=== PATIENT | male | born 1960 | race Caucasian/White ===

== ENCOUNTER 2018-06-06 14:08 | Emergency (ER) | payer MEDICAID ==
[~2018-06-06] VITALS: Ht 177.8 cm; Wt 85.0 kg
[~2018-06-06 14:08] MED LIST: FLUT16SP2 BOTHNARES
[2018-06-06 14:31] VITALS: BP 118/68
[2018-06-06] MEDS ORDERED: ONDA4TAB6 PO (15:19)
[2018-06-06] MEDS ORDERED: DOXY100C43 PO (15:19)
--- NOTE | 2018-06-06 16:40 | NUR ---
Patient seen and assessed by provider.
== END 2018-06-06 16:46 | disposition home or self-care (01) ==
LOC: ER 14:09
DX: H72.91 Unspecified perforation of tympanic membrane, right ear (principal); H92.03 Otalgia, bilateral; Z98.890 Other specified postprocedural states; Z79.899 Other long term (current) drug therapy
CPT/HCPCS: 99283

== ENCOUNTER 2019-04-15 07:08 | Inpatient (IN) | payer MEDICAID ==
[~2019-04-15] VITALS: Ht 177.8 cm; Wt 93.2 kg
[~2019-04-15 07:08] MED LIST changes: +ONDA4TAB6 PO
[2019-04-15] MEDS ORDERED: normal saline 1000ML IV soln IVB ONE (08:05)
[2019-04-15] MEDS ORDERED: piperacillin/tazo 3.375gm/50ml 50 ML IV ONE (08:25)
[2019-04-15 08:35] LABS: BASOPHILS # (AUTO) 0.1 X10'3 (0-0.2); BASOPHILS % (AUTO) 0.5 % (0-1); EOSINOPHILS # (AUTO) 0.1 X10'3 (0-0.9); EOSINOPHILS % (AUTO) 1.3 % (0-6); HEMATOCRIT 38.9 % (42.0-52.0); HEMOGLOBIN 13.6 g/dl (14.0-17.9); LYMPHOCYTES # (AUTO) 0.6 X10'3 (1.1-4.8); LYMPHOCYTES % (AUTO) 5.5 % (21-51); MEAN CORPUSCULAR HGB CONC 34.9 g/dL (33.0-36.5); MEAN CORPUSCULAR VOLUME 88.8 FL (78-98); MEAN PLATELET VOLUME 7.4 FL (7.4-10.4); MONOCYTES # (AUTO) 1.2 X10'3 (0-0.9); MONOCYTES % (AUTO) 11.4 % (2-12); NEUTROPHILS # (AUTO) 8.6 X10'3 (1.8-7.7); NEUTROPHILS % (AUTO) 81.3 % (42-75); PLATELET COUNT 230 X10'3 (140-440); RED BLOOD COUNT 4.38 X10'6 (4.70-6.10); RED CELL DISTRIBUTION WIDTH 13.2 % (11.5-14.5); WHITE BLOOD COUNT 10.6 X10'3 (4.5-11.0)
[2019-04-15 08:47] LABS: ALANINE AMINOTRANSFERASE 18 U/L (12-78); ALBUMIN 3.2 G/DL (3.4-5.0); ALBUMIN/GLOBULIN RATIO 0.7 (1.1-1.5); ALKALINE PHOSPHATASE 89 IU/L (46-116); ANION GAP 10 (8-16); ASPARTATE AMINO TRANSFERASE 9 U/L (10-37); BILIRUBIN,TOTAL 0.3 MG/DL (0.1-1.0); BLOOD UREA NITROGEN 17 MG/DL (7-18); BUN/CREATININE RATIO 20.5 (5.4-32.0); CALCIUM 9.3 MG/DL (8.5-10.1); CHLORIDE 99 MMOL/L (99-107); CREATININE 0.83 MG/DL (0.60-1.10); GLUCOSE 224 MG/DL (70-104); POTASSIUM 3.9 MMOL/L (3.5-5.1); SODIUM 134 MMOL/L (135-145); TOTAL PROTEIN 7.6 G/DL (6.4-8.2); eGFR > 90 ML/MIN
[2019-04-15 08:49] LABS: HEMOGLOBIN A1C 6.9 % (4.5-6.2)
[2019-04-15] MEDS ORDERED: magnesium hydroxide 30ml (MOM) UD suspension PO PRN (09:30)
[2019-04-15] MEDS ORDERED: potassium CL 10mEq/100ml bag 100 ML IV PRN ×2 (09:30)
[2019-04-15] MEDS ORDERED: mag hydrox/Alum hydrox/simeth 30ml oral suspension PO PRN (09:30)
[2019-04-15] MEDS ORDERED: magnesium 2GM in 50ml NS 50 ML IV PRN (09:30)
[2019-04-15] MEDS ORDERED: HYDROcodone/acetaminophen 5mg/325mg tablet PO PRN (09:30)
[2019-04-15] MEDS ORDERED: acetaminophen 325mg tablet PO PRN ×2 (09:30)
[2019-04-15] MEDS ORDERED: potassium Cl 20 mEq SR tablet PO PRN ×2 (09:30)
[2019-04-15] MEDS ORDERED: ondansetron/PF 4mg/2ml inj IV PRN (09:30)
[2019-04-15] MEDS ORDERED: morphine 2 MG/ML inj. syringe IV PRN (09:30)
[2019-04-15] MEDS ORDERED: magnesium 4gm in 100ml NS 100 ML IV PRN (09:30)
[2019-04-15] MEDS ORDERED: magnesium Cl slow-release 64mg tablet PO PRN (09:30)
[2019-04-15] MEDS ORDERED: METF500T PO (09:39)
[2019-04-15] MEDS ORDERED: AMIT25TA10 PO (12:36)
[2019-04-15] MEDS ORDERED: BUDE180A INH (12:36)
--- NOTE | 2019-04-15 12:40 | NUR ---
ATTEMPTED TO CALL REPORT TO ORTHO-NEURO UNIT, BUT NURSE IS UNAVAILABLE TO TAKE REPORT AT THIS TIME.
--- NOTE | 2019-04-15 13:20 | NUR ---
RECEIVED REPORT FROM SCARLETT WEINBERG. CALLED ER WHEN I GOT BACK FROM LUNCH TO GET REPORT.
[2019-04-15] MEDS: morphine 2 MG/ML inj. syringe IV PRN (13:23)
[2019-04-15 13:50] VITALS: BP 137/80
[2019-04-15] MEDS: HYDROcodone/acetaminophen 10/325mg tab PO PRN ×2 (16:37→20:36)
--- NOTE | 2019-04-15 17:47 | NUR ---
paged regarding antibiotics and diet.
--- NOTE | 2019-04-15 17:56 | NUR ---
into see patient
[2019-04-15 18:00] VITALS: BP 109/62
[2019-04-15] MEDS ORDERED: dextrose 50%-water 50ml dispensing syringe IV PRN ×2 (18:20)
[2019-04-15] MEDS ORDERED: glucagon, human recombinant 1mg kit SUBCUT PRN (18:20)
[2019-04-15] MEDS ORDERED: MESSAGE TO PHARMACY PO ONE (18:20)
[2019-04-15] MEDS ORDERED: insulin Lispro (HumaLOG) vial - multi-dose SQ SCH (18:20)
[2019-04-15] MEDS ORDERED: dextrose ORAL solution 15 GM/59 ML bottle PO PRN ×2 (18:20)
[2019-04-15] MEDS ORDERED: ipratropium/albuterol 3ml nebule NEB PRN (18:20)
--- NOTE | 2019-04-15 18:25 | NUR ---
Received report from LENARD Lorenzo. Assumed patient care.
--- NOTE | 2019-04-15 18:25 | NUR ---
Problems reprioritized. Patient report given, questions answered & plan of care reviewed with Socorro WEINBERG.
[2019-04-15] MEDS: VANCOmycin 1250MG/NS 250ml Bag 250 ML IV SCH (19:17)
[2019-04-15] MEDS: amitriptyline 50mg tablet PO SCH (20:36)
[2019-04-15] MEDS: lactobacillus rhamnosus 10,000 MMU CELLS/CAPSULE PO SCH (20:36)
[2019-04-15] MEDS: piperacillin/tazo 3.375gm/50ml 50 ML IV SCH (20:49)
[2019-04-15 22:00] VITALS: BP 95/62
[2019-04-15] MEDS: ipratropium/albuterol 3ml nebule NEB SCH (22:33)
[2019-04-16] VITALS (8 sets, daily range): BP systolic 98–125; BP diastolic 56–62
[2019-04-16] MEDS: VANCOmycin 1250MG/NS 250ml Bag 250 ML IV SCH ×4 (00:09→22:49)
[2019-04-16] MEDS: piperacillin/tazo 3.375gm/50ml 50 ML IV SCH ×3 (01:55→16:00)
[2019-04-16 05:48] LABS: BASOPHILS % (AUTO) 0.2 % (0-1); EOSINOPHILS # (AUTO) 0.2 X10'3 (0-0.9); EOSINOPHILS % (AUTO) 2.5 % (0-6); HEMATOCRIT 34.1 % (42.0-52.0); LYMPHOCYTES # (AUTO) 0.8 X10'3 (1.1-4.8); LYMPHOCYTES % (AUTO) 8.2 % (21-51); MEAN CORPUSCULAR HEMOGLOBIN 31.2 PG (27.0-31.0); MEAN CORPUSCULAR HGB CONC 35.2 g/dL (33.0-36.5); MEAN CORPUSCULAR VOLUME 88.5 FL (78-98); MEAN PLATELET VOLUME 7.4 FL (7.4-10.4); MONOCYTES # (AUTO) 1.7 X10'3 (0-0.9); MONOCYTES % (AUTO) 17.5 % (2-12); NEUTROPHILS # (AUTO) 6.9 X10'3 (1.8-7.7); NEUTROPHILS % (AUTO) 71.6 % (42-75); PLATELET COUNT 226 X10'3 (140-440); RED BLOOD COUNT 3.86 X10'6 (4.70-6.10); RED CELL DISTRIBUTION WIDTH 13.2 % (11.5-14.5); WHITE BLOOD COUNT 9.6 X10'3 (4.5-11.0)
[2019-04-16 05:56] LABS: ALBUMIN 2.5 G/DL (3.4-5.0); ANION GAP 6 (8-16); BLOOD UREA NITROGEN 9 MG/DL (7-18); CALCIUM 8.5 MG/DL (8.5-10.1); CHLORIDE 102 MMOL/L (99-107); GLUCOSE 152 MG/DL (70-104); MAGNESIUM 1.7 MG/DL (1.5-2.4); POTASSIUM 4.4 MMOL/L (3.5-5.1); SODIUM 137 MMOL/L (135-145); TOTAL CARBON DIOXIDE 29.1 MMOL/L (24-32); eGFR 87 ML/MIN
--- NOTE | 2019-04-16 06:31 | NUR ---
Report given, questions answered and plan of care reviewed to LENARD Lorenzo.
[2019-04-16] MEDS: insulin glargine (Lantus) pen - multi-dose SQ SCH ×2 (06:58→20:42)
[2019-04-16 07:04] LABS: PLATELET ESTIMATE NORMAL; TOTAL CELLS COUNTED 100
[2019-04-16] MEDS: lactobacillus rhamnosus 10,000 MMU CELLS/CAPSULE PO SCH ×3 (07:22→19:22)
[2019-04-16] MEDS: nicotine 21mg patch - 24 hr TD SCH (07:22)
[2019-04-16] MEDS: enoxaparin 40mg/0.4ml syringe SQ SCH (07:23)
[2019-04-16] MEDS: K and/or MAG REPLACEMENT MC SCH (07:23)
[2019-04-16] MEDS: budesonide 0.5mg/2ml UD nebule IH SCH ×2 (08:13→20:49)
[2019-04-16] MEDS: ipratropium/albuterol 3ml nebule NEB SCH ×3 (08:13→20:49)
--- NOTE | 2019-04-16 11:43 | NUR ---
Student documentation:I have reviewed and agree with all interventions, assessments performed and documented by Ronal Rodriguez.
[2019-04-16] MEDS ORDERED: fentaNYL/PF 50MCG/1 ML 2ML syringe ONE (15:07)
[2019-04-16] MEDS ORDERED: midazolam 2 mg/2 ml injection ONE (15:07)
[2019-04-16] MEDS ORDERED: morphine 4 MG/ML inj SYRINge IV PRN ×2 (15:25)
[2019-04-16] MEDS: ringers solution, lacted 1,000 ML IV SCH (15:25)
[2019-04-16] MEDS ORDERED: ondansetron/PF 4mg/2ml inj IV PRN (15:25)
[2019-04-16] MEDS ORDERED: meperidine/PF 25mg/ml syringe IV PRN ×3 (15:25)
[2019-04-16] MEDS ORDERED: proCHLORperazine 10 MG/2 ml inj IV PRN (15:25)
[2019-04-16] MEDS ORDERED: propofol inj 20 ML IV ONE (15:26)
--- NOTE | 2019-04-16 15:35 | NUR ---
ADMITTED TO PACU FROM OR ACCOMPANIED BY ANESTHESIA. INTIAL PHYSICAL ASSESSMENT DONE AND RECORDED. REPORT RECEIVED FROM ANESTHESIA.
--- NOTE | 2019-04-16 16:05 | NUR ---
PACU DISCHARGE CRITERIA MET, REPORT GIVEN TO FLOOR. DENIES PAIN OR DISCOMFORT, TRANSFERRED TO ROOM IN STABLE GOOD CONDITION.
[2019-04-16] MEDS: morphine 2 MG/ML inj. syringe IV PRN (19:23)
[2019-04-16] MEDS: amitriptyline 50mg tablet PO SCH (20:38)
[2019-04-17] MEDS: piperacillin/tazo 3.375gm/50ml 50 ML IV SCH ×2 (00:39→10:08)
[2019-04-17] MEDS: ringers solution, lacted 1,000 ML IV SCH (00:45)
[2019-04-17 02:00] VITALS: BP 117/60
[2019-04-17 06:00] VITALS: BP 101/48
--- NOTE | 2019-04-17 06:20 | NUR ---
Patient in room ORTHO 4013. I have received report from KYLEE WEINBERG and had the opportunity to ask questions and assume patient care.
--- NOTE | 2019-04-17 06:33 | NUR ---
Problems reprioritized. Patient report given, questions answered & plan of care reviewed with ANIA. Addendum: 04/17/19 at 0633 by Erick Allison RN Amended: Links added.
[2019-04-17] MEDS ORDERED: VANCOMYCIN LEVEL IV ONE ×3 (07:30→23:30)
[2019-04-17] MEDS: nicotine 21mg patch - 24 hr TD SCH (07:59)
[2019-04-17] MEDS: K and/or MAG REPLACEMENT MC SCH (08:00)
[2019-04-17] MEDS: lactobacillus rhamnosus 10,000 MMU CELLS/CAPSULE PO SCH ×2 (08:02→20:30)
[2019-04-17] MEDS: enoxaparin 40mg/0.4ml syringe SQ SCH (08:04)
[2019-04-17] MEDS: HYDROcodone/acetaminophen 10/325mg tab PO PRN ×4 (08:05→20:31)
[2019-04-17] MEDS: VANCOmycin 1250MG/NS 250ml Bag 250 ML IV SCH ×3 (08:13→23:57)
[2019-04-17 08:31] LABS: BASOPHILS % (AUTO) 0.5 % (0-1); EOSINOPHILS # (AUTO) 0.1 X10'3 (0-0.9); EOSINOPHILS % (AUTO) 1.4 % (0-6); HEMATOCRIT 36.3 % (42.0-52.0); HEMOGLOBIN 12.6 g/dl (14.0-17.9); LYMPHOCYTES # (AUTO) 0.7 X10'3 (1.1-4.8); LYMPHOCYTES % (AUTO) 7.8 % (21-51); MEAN CORPUSCULAR HEMOGLOBIN 30.6 PG (27.0-31.0); MEAN CORPUSCULAR HGB CONC 34.6 g/dL (33.0-36.5); MEAN CORPUSCULAR VOLUME 88.5 FL (78-98); MEAN PLATELET VOLUME 7.7 FL (7.4-10.4); MONOCYTES # (AUTO) 1.1 X10'3 (0-0.9); NEUTROPHILS % (AUTO) 78.3 % (42-75); PLATELET COUNT 251 X10'3 (140-440); RED CELL DISTRIBUTION WIDTH 13.2 % (11.5-14.5); WHITE BLOOD COUNT 8.9 X10'3 (4.5-11.0)
[2019-04-17 08:47] LABS: ALBUMIN 2.5 G/DL (3.4-5.0); ANION GAP 7 (8-16); BLOOD UREA NITROGEN 8 MG/DL (7-18); BUN/CREATININE RATIO 12.3 (5.4-32.0); CALCIUM 8.8 MG/DL (8.5-10.1); CHLORIDE 101 MMOL/L (99-107); CREATININE 0.65 MG/DL (0.60-1.10); GLUCOSE 140 MG/DL (70-104); MAGNESIUM 1.6 MG/DL (1.5-2.4); POTASSIUM 3.7 MMOL/L (3.5-5.1); SODIUM 134 MMOL/L (135-145); TOTAL CARBON DIOXIDE 26.2 MMOL/L (24-32); VANCOMYCIN,TROUGH 11.9 UG/ML (6.0-14.0); eGFR > 90 ML/MIN
[2019-04-17] MEDS: budesonide 0.5mg/2ml UD nebule IH SCH ×2 (09:00→19:43)
[2019-04-17] MEDS: ipratropium/albuterol 3ml nebule NEB SCH ×3 (09:00→19:42)
[2019-04-17 10:00] VITALS: BP 131/61
[2019-04-17] MEDS ORDERED: gadobutrol 10mmol/10ml inj. IV ONE (10:15)
[2019-04-17] MEDS: metroNIDAZOLE 500mg tablet PO SCH ×2 (11:29→20:30)
[2019-04-17] MEDS: CefTRIAXone 2gm/D5W 50ml 50 ML IV SCH (11:29)
--- NOTE | 2019-04-17 11:44 | NUR ---
Student documentation: I have reviewed all interventions, assessments performed and documented by Sarahi Guajardo. Student Medication Administration: For this medication-pass time frame, all medication were reviewed, dispensed, administered and documented per hospital policy by Sarahi Guajardo.
--- NOTE | 2019-04-17 14:46 | NUR ---
patient dicharged Addendum: 04/17/19 at 1449 by Billie Castillo RT Amended: Links added.
[2019-04-17 18:00] VITALS: BP 120/60
--- NOTE | 2019-04-17 18:05 | NUR ---
Problems reprioritized. Patient report given, questions answered & plan of care reviewed with ABDOUL WEINBERG.
[2019-04-17] MEDS: amitriptyline 50mg tablet PO SCH (20:30)
[2019-04-17] MEDS: insulin glargine (Lantus) pen - multi-dose SQ SCH (21:00)
[2019-04-17 22:00] VITALS: BP 118/63
[2019-04-18] MEDS: HYDROcodone/acetaminophen 10/325mg tab PO PRN (04:55)
[2019-04-18 06:00] VITALS: BP 114/86
[2019-04-18 06:43] LABS: BASOPHILS % (AUTO) 0.5 % (0-1); EOSINOPHILS # (AUTO) 0.3 X10'3 (0-0.9); EOSINOPHILS % (AUTO) 3.2 % (0-6); HEMATOCRIT 32.8 % (42.0-52.0); HEMOGLOBIN 11.5 g/dl (14.0-17.9); LYMPHOCYTES # (AUTO) 0.9 X10'3 (1.1-4.8); LYMPHOCYTES % (AUTO) 11.2 % (21-51); MEAN CORPUSCULAR HEMOGLOBIN 31.1 PG (27.0-31.0); MEAN CORPUSCULAR HGB CONC 34.9 g/dL (33.0-36.5); MEAN CORPUSCULAR VOLUME 89.2 FL (78-98); MEAN PLATELET VOLUME 7.7 FL (7.4-10.4); MONOCYTES % (AUTO) 12.2 % (2-12); NEUTROPHILS # (AUTO) 5.8 X10'3 (1.8-7.7); NEUTROPHILS % (AUTO) 72.9 % (42-75); PLATELET COUNT 261 X10'3 (140-440); RED BLOOD COUNT 3.68 X10'6 (4.70-6.10); RED CELL DISTRIBUTION WIDTH 13.4 % (11.5-14.5); WHITE BLOOD COUNT 7.9 X10'3 (4.5-11.0)
--- NOTE | 2019-04-18 06:48 | NUR ---
Patient in room ORTHO 4013. I have received report from Diane WEINBERG and had the opportunity to ask questions and assume patient care. All patient needs met at this time.
[2019-04-18 07:04] LABS: ALBUMIN 2.2 G/DL (3.4-5.0); ANION GAP 7 (8-16); BLOOD UREA NITROGEN 11 MG/DL (7-18); BUN/CREATININE RATIO 15.9 (5.4-32.0); CALCIUM 8.2 MG/DL (8.5-10.1); CHLORIDE 102 MMOL/L (99-107); CREATININE 0.69 MG/DL (0.60-1.10); GLUCOSE 117 MG/DL (70-104); MAGNESIUM 1.7 MG/DL (1.5-2.4); POTASSIUM 3.7 MMOL/L (3.5-5.1); SODIUM 137 MMOL/L (135-145); TOTAL CARBON DIOXIDE 27.8 MMOL/L (24-32); eGFR > 90 ML/MIN
[2019-04-18] MEDS: lactobacillus rhamnosus 10,000 MMU CELLS/CAPSULE PO SCH (07:24)
[2019-04-18] MEDS: metroNIDAZOLE 500mg tablet PO SCH (07:24)
[2019-04-18] MEDS: nicotine 21mg patch - 24 hr TD SCH (07:25)
[2019-04-18] MEDS: CefTRIAXone 2gm/D5W 50ml 50 ML IV SCH (07:26)
[2019-04-18] MEDS: enoxaparin 40mg/0.4ml syringe SQ SCH (08:00)
[2019-04-18] MEDS: K and/or MAG REPLACEMENT MC SCH (08:00)
[2019-04-18] MEDS: budesonide 0.5mg/2ml UD nebule IH SCH (09:49)
[2019-04-18] MEDS: ipratropium/albuterol 3ml nebule NEB SCH (09:49)
[2019-04-18 10:00] VITALS: BP 107/49
[2019-04-18] MEDS ORDERED: METF500T PO (11:45)
[2019-04-19] MEDS ORDERED: VANCOMYCIN LEVEL IV ONE (08:30)
== END 2019-04-18 13:15 | disposition home or self-care (01) | DRG 317 ==
LOC: ER 07:08 → ED HOLD 09:39 → ORTHO 4S 13:37
PROVIDERS: ADMIT Hospitalist; ATTEND Hospitalist
PROC: 0L9W0ZZ Drainage of Left Foot Tendon, Open Approach (ICD-10-PCS; 2019-04-16)
PROC: 0JBR0ZZ Excision of Left Foot Subcutaneous Tissue and Fascia, Open Approach (ICD-10-PCS; 2019-04-16)
PROC: 02HV33Z Insertion of Infusion Device into Superior Vena Cava, Percutaneous Approach (ICD-10-PCS; principal; 2019-04-17)
PROC: B548ZZA Ultrasonography of Superior Vena Cava, Guidance (ICD-10-PCS; 2019-04-17)
DX: E11.69 Type 2 diabetes mellitus with other specified complication (principal); M86.8X7 Other osteomyelitis, ankle and foot; E11.42 Type 2 diabetes mellitus with diabetic polyneuropathy; E11.621 Type 2 diabetes mellitus with foot ulcer; L03.115 Cellulitis of right lower limb; L97.529 Non-pressure chronic ulcer of other part of left foot with unspecified severity; J44.9 Chronic obstructive pulmonary disease, unspecified; L02.611 Cutaneous abscess of right foot; F17.200 Nicotine dependence, unspecified, uncomplicated; B95.7 Other staphylococcus as the cause of diseases classified elsewhere; F12.90 Cannabis use, unspecified, uncomplicated; L97.519 Non-pressure chronic ulcer of other part of right foot with unspecified severity; Z79.82 Long term (current) use of aspirin; Z85.819 Personal history of malignant neoplasm of unspecified site of lip, oral cavity, and pharynx; Z79.899 Other long term (current) drug therapy; Z71.6 Tobacco abuse counseling; Z59.0 Homelessness
CPT/HCPCS: 36415; 36569; 71045; 73630; 73723; 76937; 80048; 80053; 80202; 82948; 83036; 83605; 83735; 85025; 85610; 87040; 87070; 87077; 87081; 87186; 94640; 94760; 96361; 96365; 97110; 97116; 97161; 97535; 97760; 99285; A6446; A6449; A7000; A9585; G0378; J0696; J1650; J1815; J2250; J2270; J2543; J2704; J3010; J3370; J3490; J7120; J7626

== ENCOUNTER 2019-05-09 10:20 | Day surgery (SDC) | payer MEDICAID ==
[~2019-05-09 10:20] MED LIST changes: +AMIT25TA10 PO; +BUDE180A INH; -FLUT16SP2 BOTHNARES; +METF500T PO; -ONDA4TAB6 PO
[2019-05-09] MEDS ORDERED: LIDOcaine 2% 5ml jelly ONE (11:19)
== END 2019-05-09 12:14 | disposition home or self-care (01) ==
LOC: WOUND CARE 10:20
PROVIDERS: ATTEND Surgery
DX: E11.621 Type 2 diabetes mellitus with foot ulcer (principal); L97.512 Non-pressure chronic ulcer of other part of right foot with fat layer exposed; E11.65 Type 2 diabetes mellitus with hyperglycemia; E11.42 Type 2 diabetes mellitus with diabetic polyneuropathy; E11.69 Type 2 diabetes mellitus with other specified complication; M86.8X7 Other osteomyelitis, ankle and foot; J44.9 Chronic obstructive pulmonary disease, unspecified; F12.90 Cannabis use, unspecified, uncomplicated; F17.200 Nicotine dependence, unspecified, uncomplicated; Z85.819 Personal history of malignant neoplasm of unspecified site of lip, oral cavity, and pharynx; Z79.899 Other long term (current) drug therapy; Z71.6 Tobacco abuse counseling; Z79.82 Long term (current) use of aspirin; Z89.422 Acquired absence of other left toe(s)
CPT/HCPCS: 36416; 82948; A4663; A6021; A6154; A6212

== ENCOUNTER 2019-05-21 09:30 | Day surgery (SDC) | payer MEDICAID | END 2019-05-21 11:23 | disposition home or self-care (01) | LOC: WOUND CARE 09:30 | PROVIDERS: ATTEND Surgery | DX: E11.621 Type 2 diabetes mellitus with foot ulcer (principal); L97.512 Non-pressure chronic ulcer of other part of right foot with fat layer exposed; E11.65 Type 2 diabetes mellitus with hyperglycemia; E11.42 Type 2 diabetes mellitus with diabetic polyneuropathy; E11.69 Type 2 diabetes mellitus with other specified complication; M86.8X7 Other osteomyelitis, ankle and foot; J44.9 Chronic obstructive pulmonary disease, unspecified; F12.90 Cannabis use, unspecified, uncomplicated; F17.200 Nicotine dependence, unspecified, uncomplicated; Z85.819 Personal history of malignant neoplasm of unspecified site of lip, oral cavity, and pharynx; Z79.899 Other long term (current) drug therapy; Z71.6 Tobacco abuse counseling; Z79.82 Long term (current) use of aspirin; Z89.422 Acquired absence of other left toe(s) | CPT/HCPCS: 93971; 97597; A4663; A6021; A6154 ==

== ENCOUNTER 2021-09-12 23:37 | Inpatient (IN) | payer OTHER, MEDICAID ==
[~2021-09-12] VITALS: Ht 177.8 cm; Wt 90.9 kg
[2021-09-13 01:34] LABS: BASOPHILS % (AUTO) 0.7 % (0-1); EOSINOPHILS # (AUTO) 0.3 X10'3 (0-0.9); EOSINOPHILS % (AUTO) 4.4 % (0-6); HEMATOCRIT 41.5 % (42.0-52.0); HEMOGLOBIN 14.4 g/dl (14.0-17.9); LYMPHOCYTES # (AUTO) 1.5 X10'3 (1.1-4.8); LYMPHOCYTES % (AUTO) 24.1 % (21-51); MEAN CORPUSCULAR HEMOGLOBIN 29.9 PG (27.0-31.0); MEAN CORPUSCULAR HGB CONC 34.7 g/dL (33.0-36.5); MEAN PLATELET VOLUME 7.9 FL (7.4-10.4); MONOCYTES # (AUTO) 0.8 X10'3 (0-0.9); MONOCYTES % (AUTO) 13.2 % (2-12); NEUTROPHILS # (AUTO) 3.5 X10'3 (1.8-7.7); NEUTROPHILS % (AUTO) 57.6 % (42-75); PLATELET COUNT 290 X10'3 (140-440); RED BLOOD COUNT 4.83 X10'6 (4.70-6.10); RED CELL DISTRIBUTION WIDTH 13.5 % (11.5-14.5); WHITE BLOOD COUNT 6.1 X10'3 (4.5-11.0)
[2021-09-13 01:53] LABS: CREATINE KINASE 496 U/L (39-308)
--- NOTE | 2021-09-13 03:19 | NUR ---
PT NEURO CONSULT WITH KARISSA, RECOMMENDS INPATIENT ADMISSION.
[2021-09-13] MEDS: normal saline 1000ml 1,000 ML IV SCH ×3 (04:25→19:13)
[2021-09-13] MEDS ORDERED: bisacodyl 10mg suppository rectal RC PRN (04:25)
[2021-09-13] MEDS ORDERED: morphine 2 MG/ML inj. syringe IV PRN (04:25)
[2021-09-13] MEDS ORDERED: ondansetron/PF 4mg/2ml inj IV PRN (04:25)
[2021-09-13] MEDS ORDERED: HYDROcodone/acetaminophen 5mg/325mg tablet PO PRN (04:25)
[2021-09-13] MEDS ORDERED: diphenhydrAMINE 50 mg/ml inj IV PRN (04:25)
[2021-09-13] MEDS ORDERED: naloxone 0.4 mg/ml inj IV PRN (04:25)
[2021-09-13] MEDS ORDERED: ondansetron 4mg rapidly disintigrating tab PO PRN (04:25)
[2021-09-13] MEDS ORDERED: acetaminophen 650mg rectal suppository RC PRN (04:25)
[2021-09-13] MEDS ORDERED: mag hydrox/Alum hydrox/simeth 30ml oral suspension PO PRN (04:25)
[2021-09-13] MEDS ORDERED: acetaminophen 325mg tablet PO PRN ×2 (04:25)
[2021-09-13] MEDS ORDERED: diphenhydrAMINE 25mg capsule PO PRN (04:25)
[2021-09-13] MEDS ORDERED: magnesium hydroxide 30ml (MOM) UD suspension PO PRN (04:25)
[2021-09-13] MEDS ORDERED: glucagon, human recombinant 1mg kit SUBCUT PRN (04:30)
[2021-09-13] MEDS ORDERED: MESSAGE TO PHARMACY PO ONE (04:30)
[2021-09-13] MEDS ORDERED: DEXTROSE 15 GM of carb/4 tabs (each vial/BOTTLE has 4 tablets) PO PRN ×2 (04:30)
[2021-09-13] MEDS ORDERED: dextrose 50%-water 50ml dispensing syringe IV PRN ×2 (04:30)
[2021-09-13] MEDS ORDERED: tetanus & diphtheria toxoid (Td) vaccine 0.5ml IMVAC ONE (04:50)
[2021-09-13] MEDS ORDERED: hydrALAZINE 20mg/ml inj. IV PRN (04:50)
--- NOTE | 2021-09-13 06:31 | NUR ---
CALLED LAB TO ADD ON CBP FROM [place] THAT WAS DRAWN EARLIER, STATES SHE WILL LOOK INTO IT AND RETURN CALL
--- NOTE | 2021-09-13 06:32 | NUR ---
TETANUS NOT AVAILABLE IN MACHINE WILL INFORM PHARMACY
[2021-09-13] MEDS ORDERED: TETanus/Pertussis (Acell)/Diphther VAC/PF (Tdap-Adult) 0.5ml syringe IMVAC ONE (06:40)
[2021-09-13 06:54] LABS: ALANINE AMINOTRANSFERASE 36 U/L (12-78); ALBUMIN 3.8 G/DL (3.4-5.0); ALBUMIN/GLOBULIN RATIO 1.2 (1.1-1.5); ALKALINE PHOSPHATASE 99 IU/L (46-116); ANION GAP 8 (8-16); ASPARTATE AMINO TRANSFERASE 33 U/L (10-37); BILIRUBIN,TOTAL 0.3 MG/DL (0.1-1.0); BLOOD UREA NITROGEN 10 MG/DL (7-18); BUN/CREATININE RATIO 12.7 (5.4-32.0); CHLORIDE 106 MMOL/L (99-107); CREATININE 0.79 MG/DL (0.60-1.10); GLUCOSE 256 MG/DL (70-104); POTASSIUM 4.2 MMOL/L (3.5-5.1); SODIUM 140 MMOL/L (135-145); TOTAL PROTEIN 7.1 G/DL (6.4-8.2); eGFR > 90 ML/MIN
--- NOTE | 2021-09-13 07:00 | NUR ---
Pt is somulent but responsive. Oriented to person, place, and time. C/O generalized pain.
[2021-09-13 07:04] LABS: CREATINE KINASE 504 U/L (39-308); PHOSPHORUS 2.9 MG/DL (2.3-4.5)
[2021-09-13] MEDS: docusate sod 100mg capsule PO SCH ×2 (07:38→20:00)
[2021-09-13] MEDS: pantoprazole 40mg Tablet.DR PO SCH (07:38)
[2021-09-13 07:44] LABS: APTT 29 SECONDS (22-32)
[2021-09-13 07:51] LABS: HEMOGLOBIN A1C 7.7 % (4.5-6.2)
--- NOTE | 2021-09-13 09:25 | NUR ---
cryptographic technician at the bedside.
--- NOTE | 2021-09-13 09:56 | NUR ---
Report given to LENARD Siegel on the Ortho/Neuro floor.
--- NOTE | 2021-09-13 10:06 | NUR ---
Received patient report from ED RN
[2021-09-13 10:11] LABS: CLARITY,URINE CLEAR (Clear); COLOR,URINE YELLOW (Yellow); GLUCOSE, URINE 500 mg/dl (Neg); KETONES,URINE NEGATIVE (Neg); LEUKOCYTE ESTERASE ,URINE NEGATIVE (Neg); NITRITES, URINE NEGATIVE (Neg); OCCULT BLOOD,URINE NEGATIVE (Neg); PROTEIN,URINE NEGATIVE (Neg); UROBILINOGEN,URINE 0.2 E.U/dL (0.2-1.0)
[2021-09-13 10:23] LABS: URINE AMPHETAMINE SCREEN POSITIVE (Neg); URINE BARBITUATE SCREEN NEGATIVE (Neg); URINE BENZODIAZEPINES SCREEN NEGATIVE (Neg); URINE CANNABINOID SCREEN POSITIVE (Neg); URINE COCAINE SCREEN NEGATIVE (Neg); URINE METHADONE SCREEN NEGATIVE (Neg); URINE OPIATE SCREEN NEGATIVE (Neg); URINE PHENCYCLIDINE SCREEN NEGATIVE (Neg)
[2021-09-13 10:40] LABS: UA COLLECTION TYPE OTHER
[2021-09-13 10:44] VITALS: BP 143/56
--- NOTE | 2021-09-13 10:51 | NUR ---
Searched through patients bag with patients permission; patient states that there is nothing that would harm this RN. Lots of mail, papers with writing all over them and some food found in bag.
--- NOTE | 2021-09-13 11:13 | NUR ---
Patient to MRI
[2021-09-13] MEDS ORDERED: INSU100I31 SQ (11:14)
[2021-09-13] MEDS ORDERED: CLOP75TA34 PO (11:14)
[2021-09-13] MEDS ORDERED: ATOR20TA66 PO (11:14)
[2021-09-13] MEDS ORDERED: ASPI-845 PO (11:14)
[2021-09-13 11:17] LABS: CHOL/HDL RATIO 6.5 (0.00-4.99); CHOLESTEROL 239 MG/DL (0-200); HDL CHOLESTEROL 37 MG/DL (35-60); LDL CHOLESTEROL 175 MG/DL (50-100); TRIGLYCERIDES 171 MG/DL (20-135)
--- NOTE | 2021-09-13 13:09 | NUR ---
PAGER ID: [phone] MESSAGE: [id number], Margareth. Do you want Q4 neuro checks ordered considering his neuro status? :) corine [id number]
[2021-09-13 14:00] VITALS: BP 157/82
[2021-09-13 18:00] VITALS: BP 143/62
--- NOTE | 2021-09-13 18:18 | NUR ---
Report given to September, RN
[2021-09-13] MEDS: insulin Lispro (HumaLOG) vial - multi-dose SQ SCH (19:35)
[2021-09-13] MEDS ORDERED: temazepam 15mg capsule PO PRN (21:00)
[2021-09-13] MEDS: insulin glargine (Lantus) pen - multi-dose SQ SCH (21:11)
[2021-09-13 22:00] VITALS: BP 115/62
[2021-09-14] VITALS (7 sets, daily range): BP systolic 107–169; BP diastolic 47–82
[2021-09-14] MEDS: normal saline 1000ml 1,000 ML IV SCH (04:36)
--- NOTE | 2021-09-14 06:45 | NUR ---
Patient in room ORTHO 4021B. I have received report from LENARD RODRIGUEZ and had the opportunity to ask questions and assume patient care.
[2021-09-14] MEDS: levoTHYROXINE 25mcg tablet PO SCH (07:27)
[2021-09-14] MEDS: docusate sod 100mg capsule PO SCH ×2 (07:27→20:09)
[2021-09-14] MEDS: atorvastatin 20mg tablet PO SCH (07:27)
[2021-09-14] MEDS: pantoprazole 40mg Tablet.DR PO SCH (07:27)
[2021-09-14 07:35] LABS: BASOPHILS % (AUTO) 0.5 % (0-1); EOSINOPHILS # (AUTO) 0.2 X10'3 (0-0.9); EOSINOPHILS % (AUTO) 4.2 % (0-6); HEMOGLOBIN 14.8 g/dl (14.0-17.9); LYMPHOCYTES # (AUTO) 1.1 X10'3 (1.1-4.8); LYMPHOCYTES % (AUTO) 19.1 % (21-51); MEAN CORPUSCULAR HEMOGLOBIN 29.5 PG (27.0-31.0); MEAN CORPUSCULAR HGB CONC 34.5 g/dL (33.0-36.5); MEAN CORPUSCULAR VOLUME 85.6 FL (78-98); MEAN PLATELET VOLUME 7.8 FL (7.4-10.4); MONOCYTES # (AUTO) 0.5 X10'3 (0-0.9); MONOCYTES % (AUTO) 8.2 % (2-12); PLATELET COUNT 257 X10'3 (140-440); RED BLOOD COUNT 5.03 X10'6 (4.70-6.10); RED CELL DISTRIBUTION WIDTH 13.7 % (11.5-14.5); WHITE BLOOD COUNT 5.9 X10'3 (4.5-11.0)
[2021-09-14 08:00] LABS: ALANINE AMINOTRANSFERASE 30 U/L (12-78); ALBUMIN 3.4 G/DL (3.4-5.0); ALKALINE PHOSPHATASE 96 IU/L (46-116); ANION GAP 7 (8-16); ASPARTATE AMINO TRANSFERASE 23 U/L (10-37); BILIRUBIN,TOTAL 0.4 MG/DL (0.1-1.0); BLOOD UREA NITROGEN 7 MG/DL (7-18); BUN/CREATININE RATIO 9.1 (5.4-32.0); CALCIUM 8.6 MG/DL (8.5-10.1); CHLORIDE 107 MMOL/L (99-107); CREATINE KINASE 138 U/L (39-308); CREATININE 0.77 MG/DL (0.60-1.10); GLUCOSE 211 MG/DL (70-104); SODIUM 140 MMOL/L (135-145); TOTAL CARBON DIOXIDE 26.4 MMOL/L (24-32); TOTAL PROTEIN 6.8 G/DL (6.4-8.2); eGFR > 90 ML/MIN
[2021-09-14 08:01] LABS: POTASSIUM 4.4 MMOL/L (3.5-5.1)
[2021-09-14] MEDS: insulin Lispro (HumaLOG) vial - multi-dose SQ SCH ×2 (08:23→18:38)
--- NOTE | 2021-09-14 13:00 | NUR ---
DID NOT TREAT AFTERNOON BLOOD SUGAR DUE TO LOW BLOOD SUGAR (77)
--- NOTE | 2021-09-14 13:23 | NUR ---
DUE TO PATIENT'S BLEED, ANTITHROMBOTIC THERAPY CONTRAINDICATED Addendum: 09/14/21 at 1328 by Idalia Simon RN Amended: Links added.
--- NOTE | 2021-09-14 13:25 | NUR ---
DM consult: Pt with T2DM with A1c 7.7%. Per EMR pt A/O x 3 and confused. Written DM education with RD contact information placed in patient's chart. Will remain available. Addendum: 09/14/21 at [address] Amended: Links added.
--- NOTE | 2021-09-14 16:06 | NUR ---
PRESSURE ULCER EDUCATION: DEFINITION: A pressure ulcer is an area of skin that breaks down when you stay in one position too long. The constant pressure against the skin reduces the blood flow to that area and the affected tissue dies. CAUSES: "Being bedridden or in a wheelchair "Fragile skin "Having a chronic condition, such as diabetes or vascular disease "Inability to move certain parts of your body without assistance "Older age "Incontinence of urine or stool SYMPTOMS: "A reddened area that DOES NOT turn white when pressed on - this can be the beginning of a pressure ulcer "A blister, deep sore or a crater - these can be advanced pressure ulcers FIRST AID: "Relieve the pressure on this area "Keep the area clean and dry "Call your primary doctor if you see any of the above symptoms "DO NOT massage the area "DO NOT use a donut shaped or ring shaped pillow- these actually interfere with the blood flow and cause complications PREVENTION: "Check for pressure ulcers everyday "Change position at least every two hours to relieve pressure "Use items that help relieve pressure- pillows, sheepskin, foam padding, and powders. "Keep skin clean and dry "Eat healthy well balanced meals "Exercise daily IF YOU SEE ANY OF THESE SYMPTOMS WHILE IN THE HOSPITAL - TELL YOUR NURSE IMMEDIATELY. IF YOU SEE ANY OF THESE SYMPTOMS WHILE AT HOME OR HAVE ANY QUESTIONS OR CONCERNS ABOUT PRESSURE ULCERS - CALL YOUR PRIMARY DOCTOR IMMEDIATELY. Addendum: 09/14/21 at 1607 by Nancy Oh LVN Amended: Links added.
--- NOTE | 2021-09-14 16:06 | NUR ---
WOUND INFECTION EDUCATION PROVIDED BY WOUND CARE 1. Patient instructed to call their primary doctor, or go the ED immediately if any of the following symptoms occur: * Increased pain in wound * Increase in drainage from the wound * Redness in the skin surrounding the wound * Warmth in the skin surrounding the wound * Bleeding from the wound * Temperature of 101 or greater 2. If any of these occur while in the hospital tell a nurse immediately. Addendum: 09/14/21 at 1607 by Nancy Oh LVN Amended: Links added.
[2021-09-14] MEDS ORDERED: GADOTERATE MEGLUMINE 7.5 MMOL/15 ML VIAL IV ONE (18:22)
--- NOTE | 2021-09-14 18:23 | NUR ---
Problems reprioritized. Patient report given, questions answered & plan of care reviewed with LENARD RODRIGUEZ.
[2021-09-14] MEDS: insulin glargine (Lantus) pen - multi-dose SQ SCH (22:03)
[2021-09-15 02:30] VITALS: BP 151/64
--- NOTE | 2021-09-15 06:19 | NUR ---
Received report from Rhianna, RN
[2021-09-15 06:25] VITALS: BP 160/83
[2021-09-15] MEDS: levoTHYROXINE 25mcg tablet PO SCH (06:59)
[2021-09-15] MEDS: atorvastatin 20mg tablet PO SCH (06:59)
[2021-09-15] MEDS: pantoprazole 40mg Tablet.DR PO SCH (06:59)
[2021-09-15] MEDS: docusate sod 100mg capsule PO SCH (06:59)
[2021-09-15 07:17] VITALS: BP 154/79
[2021-09-15 07:27] LABS: BASOPHILS % (AUTO) 0.3 % (0-1); EOSINOPHILS # (AUTO) 0.2 X10'3 (0-0.9); EOSINOPHILS % (AUTO) 3.7 % (0-6); HEMATOCRIT 40.8 % (42.0-52.0); LYMPHOCYTES # (AUTO) 1.1 X10'3 (1.1-4.8); LYMPHOCYTES % (AUTO) 20.2 % (21-51); MEAN CORPUSCULAR HEMOGLOBIN 29.2 PG (27.0-31.0); MEAN CORPUSCULAR HGB CONC 34.3 g/dL (33.0-36.5); MEAN CORPUSCULAR VOLUME 85.1 FL (78-98); MEAN PLATELET VOLUME 7.6 FL (7.4-10.4); MONOCYTES # (AUTO) 0.6 X10'3 (0-0.9); MONOCYTES % (AUTO) 10.1 % (2-12); NEUTROPHILS # (AUTO) 3.6 X10'3 (1.8-7.7); NEUTROPHILS % (AUTO) 65.7 % (42-75); PLATELET COUNT 265 X10'3 (140-440); RED BLOOD COUNT 4.79 X10'6 (4.70-6.10); RED CELL DISTRIBUTION WIDTH 13.8 % (11.5-14.5); WHITE BLOOD COUNT 5.5 X10'3 (4.5-11.0)
[2021-09-15 08:02] LABS: ALANINE AMINOTRANSFERASE 28 U/L (12-78); ALBUMIN 3.2 G/DL (3.4-5.0); ALKALINE PHOSPHATASE 89 IU/L (46-116); ANION GAP 4 (8-16); ASPARTATE AMINO TRANSFERASE 18 U/L (10-37); BILIRUBIN,TOTAL 0.4 MG/DL (0.1-1.0); BLOOD UREA NITROGEN 8 MG/DL (7-18); BUN/CREATININE RATIO 11.3 (5.4-32.0); CALCIUM 8.6 MG/DL (8.5-10.1); CHLORIDE 107 MMOL/L (99-107); CREATINE KINASE 79 U/L (39-308); CREATININE 0.71 MG/DL (0.60-1.10); GLUCOSE 205 MG/DL (70-104); POTASSIUM 3.9 MMOL/L (3.5-5.1); SODIUM 139 MMOL/L (135-145); TOTAL CARBON DIOXIDE 27.9 MMOL/L (24-32); TOTAL PROTEIN 6.3 G/DL (6.4-8.2); eGFR > 90 ML/MIN
[2021-09-15] MEDS: insulin Lispro (HumaLOG) vial - multi-dose SQ SCH (08:56)
--- NOTE | 2021-09-15 09:31 | NUR ---
Patient very anxious about discharge plan and rummaging through belongings this AM, discussed with patient that his discharge plan is being worked out with social worker clinical and to this RNs knowledge he is to DC to [facility] on discharge. Patient steady on his feet removed tabs alarm for him to go to restroom.
[2021-09-15 10:30] VITALS: BP 139/79
[2021-09-15] MEDS ORDERED: LEVO25TA7 PO (10:59)
[2021-09-15] MEDS ORDERED: ATOR20TA66 PO (10:59)
--- NOTE | 2021-09-15 11:14 | NUR ---
Patient getting increasingly agitated, renal social worker came to speak to patient this AM and he was hitting the bed and the wall. Patient is angry because he does not have a place to go on discharge; renal social worker told him he could go [facility], patient does not want this. When this RN offered him a ride he stated he does not want a ride anywhere because he has things he needs to do downtown, called in new prescriptions to [facility]. discharge instructions given to patient he verbalized understanding.
--- NOTE | 2021-09-15 11:29 | NUR ---
Prescriptions called in to [facility] on [address]
== END 2021-09-15 11:30 | disposition home or self-care (01) | DRG 64 ==
LOC: ER 23:38 → UNDOADMIN 09-13 04:28 → ED HOLD 09-13 04:28 → ORTHO 4S 09-13 10:05 → ED HOLD 09-13 10:05
PROVIDERS: ADMIT Family Medicine; ATTEND Family Medicine
PROC: 3E0234Z Introduction of Serum, Toxoid and Vaccine into Muscle, Percutaneous Approach (ICD-10-PCS; principal; 2021-09-13)
DX: I63.89 Other cerebral infarction (principal); I61.8 Other nontraumatic intracerebral hemorrhage; M62.82 Rhabdomyolysis; R47.01 Aphasia; I10 Essential (primary) hypertension; J44.9 Chronic obstructive pulmonary disease, unspecified; Z20.822 Contact with and (suspected) exposure to COVID-19; E03.9 Hypothyroidism, unspecified; E11.42 Type 2 diabetes mellitus with diabetic polyneuropathy; F12.10 Cannabis abuse, uncomplicated; R29.6 Repeated falls; W18.39XA Other fall on same level, initial encounter; E11.51 Type 2 diabetes mellitus with diabetic peripheral angiopathy without gangrene; R29.704 NIHSS score 4; S46.912A Strain of unspecified muscle, fascia and tendon at shoulder and upper arm level, left arm, initial encounter; E11.65 Type 2 diabetes mellitus with hyperglycemia; E78.5 Hyperlipidemia, unspecified; F31.9 Bipolar disorder, unspecified; S00.81XA Abrasion of other part of head, initial encounter; Z86.73 Personal history of transient ischemic attack (TIA), and cerebral infarction without residual deficits; Z23 Encounter for immunization; Z59.00 Homelessness unspecified; Z79.899 Other long term (current) drug therapy; Y93.89 Activity, other specified; Y92.89 Other specified places as the place of occurrence of the external cause; Y99.8 Other external cause status; Z71.51 Drug abuse counseling and surveillance of drug abuser; Z79.82 Long term (current) use of aspirin; Z79.4 Long term (current) use of insulin
CPT/HCPCS: 36415; 70450; 70544; 70551; 70552; 71045; 72125; 73030; 80053; 80061; 80305; 81003; 82550; 82948; 83036; 83605; 83735; 83880; 84100; 84145; 84443; 84484; 85025; 85610; 85730; 87081; 87635; 90715; 92508; 92616; 93005; 93306; 97116; 97161; 97530; 99285; A9575; C9803; G0378; J1815; J7030

== ENCOUNTER 2021-11-12 06:07 | Emergency (ER) | payer OTHER, MEDICAID ==
[~2021-11-12] VITALS: Ht 177.8 cm; Wt 92.0 kg
[~2021-11-12 06:07] MED LIST changes: -AMIT25TA10 PO; +ATOR20TA66 PO; -BUDE180A INH; +INSU100I31 SQ; +LEVO25TA7 PO; -METF500T PO
[2021-11-12] MEDS ORDERED: normal saline 1000ML IV soln IVB ONE (07:45)
--- NOTE | 2021-11-12 08:00 | NUR ---
PT DENIES ANY SI/HI IDEATIONS. PT ALERT AND ORIENTED X4.
[2021-11-12 08:26] LABS: BASOPHILS % (AUTO) 0.5 % (0-1); EOSINOPHILS # (AUTO) 0.1 X10'3 (0-0.9); EOSINOPHILS % (AUTO) 1.5 % (0-6); HEMATOCRIT 41.3 % (42.0-52.0); HEMOGLOBIN 13.8 g/dl (14.0-17.9); LYMPHOCYTES % (AUTO) 11.3 % (21-51); MEAN CORPUSCULAR HEMOGLOBIN 28.5 PG (27.0-31.0); MEAN CORPUSCULAR HGB CONC 33.4 g/dL (33.0-36.5); MEAN CORPUSCULAR VOLUME 85.6 FL (78-98); MEAN PLATELET VOLUME 7.1 FL (7.4-10.4); MONOCYTES # (AUTO) 0.7 X10'3 (0-0.9); MONOCYTES % (AUTO) 8.1 % (2-12); NEUTROPHILS # (AUTO) 7.1 X10'3 (1.8-7.7); NEUTROPHILS % (AUTO) 78.6 % (42-75); PLATELET COUNT 411 X10'3 (140-440); RED BLOOD COUNT 4.82 X10'6 (4.70-6.10); RED CELL DISTRIBUTION WIDTH 13.7 % (11.5-14.5); WHITE BLOOD COUNT 9.1 X10'3 (4.5-11.0)
[2021-11-12 08:52] LABS: ALANINE AMINOTRANSFERASE 20 U/L (12-78); ALBUMIN 3.7 G/DL (3.4-5.0); ALBUMIN/GLOBULIN RATIO 0.9 (1.1-1.5); ALKALINE PHOSPHATASE 115 IU/L (46-116); ANION GAP 8 (8-16); ASPARTATE AMINO TRANSFERASE 11 U/L (10-37); BILIRUBIN,TOTAL 0.4 MG/DL (0.1-1.0); BLOOD UREA NITROGEN 14 MG/DL (7-18); BUN/CREATININE RATIO 18.7 (5.4-32.0); CALCIUM 9.1 MG/DL (8.5-10.1); CHLORIDE 101 MMOL/L (99-107); CREATINE KINASE 148 U/L (39-308); CREATININE 0.75 MG/DL (0.60-1.10); GLUCOSE 228 MG/DL (70-104); MAGNESIUM 1.8 MG/DL (1.5-2.4); POTASSIUM 4.4 MMOL/L (3.5-5.1); SODIUM 137 MMOL/L (135-145); TOTAL CARBON DIOXIDE 28.1 MMOL/L (24-32); TOTAL PROTEIN 7.8 G/DL (6.4-8.2); eGFR > 90 ML/MIN
[2021-11-12 09:19] LABS: URINE AMPHETAMINE SCREEN POSITIVE (Neg); URINE BARBITUATE SCREEN NEGATIVE (Neg); URINE BENZODIAZEPINES SCREEN NEGATIVE (Neg); URINE CANNABINOID SCREEN POSITIVE (Neg); URINE COCAINE SCREEN NEGATIVE (Neg); URINE METHADONE SCREEN NEGATIVE (Neg); URINE OPIATE SCREEN NEGATIVE (Neg); URINE PHENCYCLIDINE SCREEN NEGATIVE (Neg)
--- NOTE | 2021-11-12 11:00 | NUR ---
PT DAUGHTER DOES NOT FEEL COMFORTABLE W/ PT RETURNING TO HER HOME PER PT METH USE. SOCIAL SERVICE CONSULT IN PROGRESS.
--- NOTE | 2021-11-12 11:43 | NUR ---
SPOKE W/ HARLEY MAHER ABOUT PT DC. SHE STATED SHE WAS JUST ABOUT TO CALL PT DAUGHTER AND WILL CALL ME BACK WITH UPDATE.
[2021-11-12 11:45] VITALS: BP 155/85
--- NOTE | 2021-11-12 11:53 | NUR ---
HARLEY MAHER CALLED TO REPORT AFTER DISCUSSING W/ PT DAUGHTER, PT WILL NEED DC TO [facility]. NOTIFIED. WILL PROVIDE TRANSPORTATION AND MEAL PRIOR TO DC.
[2021-11-13] MEDS ORDERED: SULF1TAB49 PO (23:08)
[2021-11-13] MEDS ORDERED: CEPH500C81 PO (23:08)
== END 2021-11-12 12:30 | disposition home or self-care (01) ==
LOC: ER 06:09
DX: F24 Shared psychotic disorder (principal); E11.9 Type 2 diabetes mellitus without complications; F12.10 Cannabis abuse, uncomplicated; J44.9 Chronic obstructive pulmonary disease, unspecified; Z79.899 Other long term (current) drug therapy; F15.10 Other stimulant abuse, uncomplicated
CPT/HCPCS: 36415; 80053; 80305; 82550; 82948; 83735; 85025; 99285; J7030

== ENCOUNTER 2021-11-13 19:48 | Emergency (ER) | payer OTHER, MEDICAID ==
[~2021-11-13] VITALS: Ht 177.8 cm; Wt 93.7 kg
[2021-11-13 20:27] VITALS: BP 115/51
[2021-11-13] MEDS ORDERED: cephalexin 500mg capsule PO ONE (22:10)
[2021-11-13] MEDS ORDERED: sulfamethoxazole/trimethoprim DS (800/160mg) tablet PO ONE (22:10)
[2021-11-13 22:33] LABS: BASOPHILS # (AUTO) 0.1 X10'3 (0-0.2); BASOPHILS % (AUTO) 0.7 % (0-1); EOSINOPHILS # (AUTO) 0.2 X10'3 (0-0.9); EOSINOPHILS % (AUTO) 2.3 % (0-6); HEMOGLOBIN 13.7 g/dl (14.0-17.9); LYMPHOCYTES # (AUTO) 1.4 X10'3 (1.1-4.8); LYMPHOCYTES % (AUTO) 15.5 % (21-51); MEAN CORPUSCULAR HEMOGLOBIN 29.1 PG (27.0-31.0); MEAN CORPUSCULAR HGB CONC 34.1 g/dL (33.0-36.5); MEAN CORPUSCULAR VOLUME 85.2 FL (78-98); MONOCYTES # (AUTO) 1.1 X10'3 (0-0.9); NEUTROPHILS # (AUTO) 6.2 X10'3 (1.8-7.7); NEUTROPHILS % (AUTO) 69.5 % (42-75); PLATELET COUNT 387 X10'3 (140-440); RED BLOOD COUNT 4.69 X10'6 (4.70-6.10); RED CELL DISTRIBUTION WIDTH 13.7 % (11.5-14.5); WHITE BLOOD COUNT 8.9 X10'3 (4.5-11.0)
[2021-11-13 22:48] LABS: ALANINE AMINOTRANSFERASE 17 U/L (12-78); ALBUMIN 3.5 G/DL (3.4-5.0); ALBUMIN/GLOBULIN RATIO 0.9 (1.1-1.5); ALKALINE PHOSPHATASE 119 IU/L (46-116); ANION GAP 2 (8-16); ASPARTATE AMINO TRANSFERASE 14 U/L (10-37); BILIRUBIN,TOTAL 0.3 MG/DL (0.1-1.0); BLOOD UREA NITROGEN 20 MG/DL (7-18); BUN/CREATININE RATIO 23.5 (5.4-32.0); CHLORIDE 104 MMOL/L (99-107); CREATININE 0.85 MG/DL (0.60-1.10); GLUCOSE 147 MG/DL (70-104); POTASSIUM 4.1 MMOL/L (3.5-5.1); SODIUM 136 MMOL/L (135-145); TOTAL CARBON DIOXIDE 29.9 MMOL/L (24-32); TOTAL PROTEIN 7.3 G/DL (6.4-8.2); eGFR > 90 ML/MIN
[2021-11-13] MEDS ORDERED: SULF1TAB49 PO (23:08)
[2021-11-13] MEDS ORDERED: CEPH500C81 PO (23:08)
== END 2021-11-13 23:19 | disposition home or self-care (01) ==
LOC: ER 19:49
DX: L03.115 Cellulitis of right lower limb (principal); L97.519 Non-pressure chronic ulcer of other part of right foot with unspecified severity; E11.40 Type 2 diabetes mellitus with diabetic neuropathy, unspecified; F12.90 Cannabis use, unspecified, uncomplicated; J44.9 Chronic obstructive pulmonary disease, unspecified; Z85.9 Personal history of malignant neoplasm, unspecified; Z79.899 Other long term (current) drug therapy; Z79.4 Long term (current) use of insulin; Z89.421 Acquired absence of other right toe(s)
CPT/HCPCS: 36415; 80053; 83605; 84145; 85025; 99283

== ENCOUNTER 2021-12-19 22:27 | Emergency (ER) | payer OTHER, MEDICAID ==
[~2021-12-19] VITALS: Ht 177.8 cm; Wt 90.0 kg
[~2021-12-19 22:27] MED LIST changes: +ASPI-845 PO; -ATOR20TA66 PO; -INSU100I31 SQ; +LANTUS SQ; -LEVO25TA7 PO; +LINE600T12 PO; +LISI10TA27 PO
[2021-12-19 22:47] VITALS: BP 134/86
[2021-12-20] MEDS ORDERED: gabapentin 300mg capsule PO ONE (02:35)
[2021-12-20] MEDS ORDERED: acetaminophen 325mg tablet PO ONE (02:50)
[2021-12-20] MEDS ORDERED: LIDOCAINE 5% OINTMENT 35GM TP ONE (02:50)
[2021-12-20] MEDS ORDERED: LIDO30CR TOP (02:51)
[2021-12-20] MEDS ORDERED: GABA600T13 PO (02:51)
[2021-12-20] MEDS ORDERED: ACET-1025 PO (02:51)
== END 2021-12-20 03:57 | disposition home or self-care (01) ==
LOC: ER 22:27
DX: E13.621 Other specified diabetes mellitus with foot ulcer (principal); G62.9 Polyneuropathy, unspecified; J44.9 Chronic obstructive pulmonary disease, unspecified; E11.9 Type 2 diabetes mellitus without complications; F12.10 Cannabis abuse, uncomplicated; F15.10 Other stimulant abuse, uncomplicated; Z59.00 Homelessness unspecified; Z56.0 Unemployment, unspecified; Z79.899 Other long term (current) drug therapy
CPT/HCPCS: 99284; A6446; A6449

== ENCOUNTER 2021-12-28 10:26 | Emergency (ER) | payer OTHER, MEDICAID ==
[~2021-12-28] VITALS: Ht 177.8 cm; Wt 90.9 kg
[~2021-12-28 10:26] MED LIST changes: +ACET-1025 PO; +GABA600T13 PO; +LIDO30CR TOP
[2021-12-28 10:31] VITALS: BP 103/74
--- NOTE | 2021-12-28 11:33 | NUR ---
Wound care clinic contacted, pt is able to be seen at 09MondayJan 03. Pt notifed of appointment and states that he will be there.
== END 2021-12-28 11:36 | disposition home or self-care (01) ==
LOC: ER 10:27
DX: E11.621 Type 2 diabetes mellitus with foot ulcer (principal); F15.10 Other stimulant abuse, uncomplicated; F12.10 Cannabis abuse, uncomplicated; J44.9 Chronic obstructive pulmonary disease, unspecified; Z59.00 Homelessness unspecified; Z56.0 Unemployment, unspecified; Z79.82 Long term (current) use of aspirin; Z79.84 Long term (current) use of oral hypoglycemic drugs; Z79.899 Other long term (current) drug therapy
CPT/HCPCS: 99281; A6258; A6446; A6449

== ENCOUNTER 2022-03-12 12:30 | Emergency (ER) | payer OTHER, MEDICAID ==
[~2022-03-12] VITALS: Ht 177.8 cm; Wt 79.5 kg
[~2022-03-12 12:30] MED LIST changes: -ACET-1025 PO; -ASPI-845 PO; +ASPI81TA53 PO; +CIPR250T4 PO; -GABA600T13 PO; +LACT1CAP26 PO; -LANTUS SQ; -LIDO30CR TOP; +LINA5TAB4 PO; -LINE600T12 PO; +METR-159 PO; +PANT40TA54 PO
[2022-03-12 16:08] LABS: BASOPHILS % (AUTO) 0.7 % (0-1); EOSINOPHILS # (AUTO) 0.3 X10'3 (0-0.9); EOSINOPHILS % (AUTO) 4.2 % (0-6); HEMATOCRIT 35.5 % (42.0-52.0); HEMOGLOBIN 12.1 g/dl (14.0-17.9); LYMPHOCYTES # (AUTO) 1.3 X10'3 (1.1-4.8); LYMPHOCYTES % (AUTO) 19.4 % (21-51); MEAN CORPUSCULAR HEMOGLOBIN 28.2 PG (27.0-31.0); MEAN CORPUSCULAR HGB CONC 34.3 g/dL (33.0-36.5); MEAN CORPUSCULAR VOLUME 82.3 FL (78-98); MONOCYTES # (AUTO) 0.8 X10'3 (0-0.9); NEUTROPHILS # (AUTO) 4.2 X10'3 (1.8-7.7); NEUTROPHILS % (AUTO) 63.7 % (42-75); PLATELET COUNT 309 X10'3 (140-440); RED BLOOD COUNT 4.31 X10'6 (4.70-6.10); RED CELL DISTRIBUTION WIDTH 15.9 % (11.5-14.5); WHITE BLOOD COUNT 6.6 X10'3 (4.5-11.0)
[2022-03-12 16:24] LABS: ALANINE AMINOTRANSFERASE 15 U/L (12-78); ALBUMIN 3.5 G/DL (3.4-5.0); ALBUMIN/GLOBULIN RATIO 0.8 (1.1-1.5); ALKALINE PHOSPHATASE 72 IU/L (46-116); ANION GAP 7 (8-16); ASPARTATE AMINO TRANSFERASE 12 U/L (10-37); BILIRUBIN,TOTAL 0.3 MG/DL (0.1-1.0); BLOOD UREA NITROGEN 24 MG/DL (7-18); BUN/CREATININE RATIO 21.4 (5.4-32.0); C-REACTIVE PROTEIN 8.55 MG/DL (0.0-0.5); CALCIUM 9.3 MG/DL (8.5-10.1); CHLORIDE 102 MMOL/L (99-107); CREATININE 1.12 MG/DL (0.60-1.10); GLUCOSE 215 MG/DL (70-104); POTASSIUM 4.6 MMOL/L (3.5-5.1); SODIUM 139 MMOL/L (135-145); TOTAL CARBON DIOXIDE 30.1 MMOL/L (24-32); TOTAL PROTEIN 8.1 G/DL (6.4-8.2); eGFR 67 ML/MIN
[2022-03-12] MEDS ORDERED: HYDR-3964 PO (17:23)
[2022-03-12 17:48] VITALS: BP 133/87
[2022-03-14] MEDS ORDERED: ATOR40TA72 PO (17:15)
[2022-03-14] MEDS ORDERED: METF-1203 PO (17:15)
[2022-03-14] MEDS ORDERED: LISI10TA27 PO (17:15)
[2022-03-14] MEDS ORDERED: INSU100I25 SQ (17:19)
== END 2022-03-12 18:03 | disposition home or self-care (01) ==
LOC: ER 12:31
DX: S91.302A Unspecified open wound, left foot, initial encounter (principal); M86.9 Osteomyelitis, unspecified; E11.42 Type 2 diabetes mellitus with diabetic polyneuropathy; J44.9 Chronic obstructive pulmonary disease, unspecified; F12.90 Cannabis use, unspecified, uncomplicated; F15.90 Other stimulant use, unspecified, uncomplicated; Z85.9 Personal history of malignant neoplasm, unspecified; Z98.890 Other specified postprocedural states; Z56.0 Unemployment, unspecified; Z59.00 Homelessness unspecified; Z79.82 Long term (current) use of aspirin; Z79.2 Long term (current) use of antibiotics; Z79.899 Other long term (current) drug therapy; X58.XXXA Exposure to other specified factors, initial encounter; Y93.89 Activity, other specified; Y92.89 Other specified places as the place of occurrence of the external cause; Y99.8 Other external cause status
CPT/HCPCS: 36415; 73630; 80053; 85025; 86140; 99284; A6407; J7030; A6258; A6449

== ENCOUNTER 2022-06-29 23:12 | Emergency (ER) | payer MEDICARE, MEDICAID ==
[~2022-06-29] VITALS: Ht 177.8 cm; Wt 92.9 kg
[~2022-06-29 23:12] MED LIST changes: -ASPI81TA53 PO; +ATOR40TA72 PO; -CIPR250T4 PO; -LACT1CAP26 PO; -LINA5TAB4 PO; +METF-436 PO; -METR-159 PO; +VANC125C11 PO
[2022-06-30] MEDS ORDERED: acetaminophen 325mg tablet PO STA (02:19)
[2022-06-30 02:46] LABS: BASOPHILS % (AUTO) 0.3 % (0-1); EOSINOPHILS # (AUTO) 0.1 X10'3 (0-0.9); EOSINOPHILS % (AUTO) 0.8 % (0-6); HEMATOCRIT 39.3 % (42.0-52.0); HEMOGLOBIN 12.9 g/dl (14.0-17.9); LYMPHOCYTES # (AUTO) 0.2 X10'3 (1.1-4.8); LYMPHOCYTES % (AUTO) 1.6 % (21-51); MEAN CORPUSCULAR HEMOGLOBIN 28.4 PG (27.0-31.0); MEAN CORPUSCULAR HGB CONC 32.8 g/dL (33.0-36.5); MEAN CORPUSCULAR VOLUME 86.4 FL (78-98); MEAN PLATELET VOLUME 7.1 FL (7.4-10.4); MONOCYTES # (AUTO) 0.7 X10'3 (0-0.9); MONOCYTES % (AUTO) 5.2 % (2-12); NEUTROPHILS # (AUTO) 12.8 X10'3 (1.8-7.7); NEUTROPHILS % (AUTO) 92.1 % (42-75); PLATELET COUNT 239 X10'3 (140-440); RED BLOOD COUNT 4.55 X10'6 (4.70-6.10); RED CELL DISTRIBUTION WIDTH 15.4 % (11.5-14.5); WHITE BLOOD COUNT 13.9 X10'3 (4.5-11.0)
[2022-06-30 02:48] LABS: CLARITY,URINE CLEAR (Clear); COLOR,URINE YELLOW (Yellow); GLUCOSE, URINE NEGATIVE (Neg); KETONES,URINE NEGATIVE (Neg); LEUKOCYTE ESTERASE ,URINE NEGATIVE (Neg); NITRITES, URINE NEGATIVE (Neg); OCCULT BLOOD,URINE TRACE-INTACT (Neg); PH,URINE 5.5 (4.8-8.0); PROTEIN,URINE NEGATIVE (Neg); UROBILINOGEN,URINE 0.2 E.U/dL (0.2-1.0)
[2022-06-30 02:54] LABS: UA COLLECTION TYPE CLN CATCH MIDSTREAM
[2022-06-30 02:56] LABS: BACTERIA,URINE NONE SEEN /HPF (Neg); MUCUS STRANDS NONE SEEN /LPF (Neg); SQUAMOUS EPITHELIAL CELL,UR NONE SEEN /LPF (FEW); WBC,URINE 0-4 /HPF (0-4)
[2022-06-30 03:00] LABS: ALANINE AMINOTRANSFERASE 19 U/L (12-78); ALBUMIN 3.7 G/DL (3.4-5.0); ALKALINE PHOSPHATASE 93 IU/L (46-116); ANION GAP 10 (8-16); ASPARTATE AMINO TRANSFERASE 11 U/L (10-37); BILIRUBIN,TOTAL 0.6 MG/DL (0.1-1.0); BLOOD UREA NITROGEN 22 MG/DL (7-18); BUN/CREATININE RATIO 22.9 (5.4-32.0); CALCIUM 9.5 MG/DL (8.5-10.1); CHLORIDE 101 MMOL/L (99-107); CREATININE 0.96 MG/DL (0.60-1.10); GLUCOSE 222 MG/DL (70-104); MAGNESIUM 1.5 MG/DL (1.5-2.4); SODIUM 135 MMOL/L (135-145); TOTAL CARBON DIOXIDE 24.2 MMOL/L (24-32); TOTAL PROTEIN 7.5 G/DL (6.4-8.2); eGFR 80 ML/MIN
[2022-06-30 03:10] LABS: URINE AMPHETAMINE SCREEN NEGATIVE (Neg); URINE BARBITUATE SCREEN NEGATIVE (Neg); URINE BENZODIAZEPINES SCREEN NEGATIVE (Neg); URINE CANNABINOID SCREEN POSITIVE (Neg); URINE COCAINE SCREEN NEGATIVE (Neg); URINE METHADONE SCREEN NEGATIVE (Neg); URINE OPIATE SCREEN NEGATIVE (Neg); URINE PHENCYCLIDINE SCREEN NEGATIVE (Neg)
[2022-06-30] MEDS ORDERED: DOXYCYCLINE 100MG CAPSULE PO STA (03:31)
[2022-06-30] MEDS ORDERED: CefTRIAXone 250MG IM Kit w/LIDOcaine IM ONE (03:35)
[2022-06-30] MEDS ORDERED: DOXY-411 PO (03:37)
[2022-06-30 04:11] VITALS: BP 142/68
== END 2022-06-30 04:13 | disposition home or self-care (01) ==
LOC: ER 23:14
DX: I88.9 Nonspecific lymphadenitis, unspecified (principal); E11.42 Type 2 diabetes mellitus with diabetic polyneuropathy; E78.00 Pure hypercholesterolemia, unspecified; I10 Essential (primary) hypertension; J44.9 Chronic obstructive pulmonary disease, unspecified; E03.9 Hypothyroidism, unspecified; G89.29 Other chronic pain; F17.200 Nicotine dependence, unspecified, uncomplicated; F12.90 Cannabis use, unspecified, uncomplicated; F15.90 Other stimulant use, unspecified, uncomplicated; Z59.00 Homelessness unspecified; Z56.0 Unemployment, unspecified; Z79.84 Long term (current) use of oral hypoglycemic drugs; Z79.899 Other long term (current) drug therapy; Z86.73 Personal history of transient ischemic attack (TIA), and cerebral infarction without residual deficits
CPT/HCPCS: 36415; 71045; 80053; 80305; 81001; 83605; 83735; 84145; 85025; 87040; 87077; 87186; 96372; 99284; J0696

== ENCOUNTER 2022-07-05 16:16 | Emergency (ER) | payer MEDICARE, MEDICAID ==
[~2022-07-05] VITALS: Ht 177.8 cm; Wt 100.0 kg
[~2022-07-05 16:16] MED LIST changes: +DOXY-411 PO
[2022-07-05] MEDS ORDERED: DOXYCYCLINE 100MG CAPSULE PO STA (17:28)
[2022-07-05] MEDS ORDERED: oxyCODONE/APAP 5-325mg tablet PO ONE (17:30)
--- NOTE | 2022-07-05 17:48 | NUR ---
SPOKE WITH DAUGHTER JHONATHAN WHO STATED PATIENT HAD STOPPED TAKING HIS DOXYCYCLINE PRESCRIBED BECAUSE IT CAUSED DIARRHEA. SHE ALSO STATED PATIENT IS NON COMPLIANT WITH ALL HIS MEDICATIONS. DR FRAIRE MADE AWARE AND WILL ENTER ORDERS NEEDED.
[2022-07-05 19:09] LABS: BASOPHILS # (AUTO) 0.1 X10'3 (0-0.2); BASOPHILS % (AUTO) 0.7 % (0-1); EOSINOPHILS # (AUTO) 0.2 X10'3 (0-0.9); EOSINOPHILS % (AUTO) 2.8 % (0-6); HEMATOCRIT 34.9 % (42.0-52.0); HEMOGLOBIN 11.8 g/dl (14.0-17.9); LYMPHOCYTES # (AUTO) 1.6 X10'3 (1.1-4.8); MEAN CORPUSCULAR HEMOGLOBIN 28.5 PG (27.0-31.0); MEAN CORPUSCULAR HGB CONC 33.7 g/dL (33.0-36.5); MEAN CORPUSCULAR VOLUME 84.7 FL (78-98); MEAN PLATELET VOLUME 7.3 FL (7.4-10.4); MONOCYTES # (AUTO) 0.9 X10'3 (0-0.9); MONOCYTES % (AUTO) 11.4 % (2-12); NEUTROPHILS # (AUTO) 5.5 X10'3 (1.8-7.7); NEUTROPHILS % (AUTO) 66.1 % (42-75); PLATELET COUNT 260 X10'3 (140-440); RED BLOOD COUNT 4.12 X10'6 (4.70-6.10); WHITE BLOOD COUNT 8.3 X10'3 (4.5-11.0)
[2022-07-05 19:23] LABS: ALANINE AMINOTRANSFERASE 17 U/L (12-78); ALBUMIN 3.2 G/DL (3.4-5.0); ALBUMIN/GLOBULIN RATIO 0.7 (1.1-1.5); ALKALINE PHOSPHATASE 107 IU/L (46-116); ANION GAP 6 (8-16); ASPARTATE AMINO TRANSFERASE 21 U/L (10-37); BILIRUBIN,TOTAL 0.2 MG/DL (0.1-1.0); BLOOD UREA NITROGEN 22 MG/DL (7-18); BUN/CREATININE RATIO 29.7 (5.4-32.0); CALCIUM 9.2 MG/DL (8.5-10.1); CHLORIDE 101 MMOL/L (99-107); CREATININE 0.74 MG/DL (0.60-1.10); GLUCOSE 230 MG/DL (70-104); POTASSIUM 4.1 MMOL/L (3.5-5.1); SODIUM 136 MMOL/L (135-145); TOTAL CARBON DIOXIDE 28.9 MMOL/L (24-32); TOTAL PROTEIN 7.5 G/DL (6.4-8.2); eGFR > 90 ML/MIN
[2022-07-05] MEDS ORDERED: TETR-59 PO (21:46)
[2022-07-05 22:00] VITALS: BP 122/81
--- NOTE | 2022-07-08 20:17 | NUR ---
Lab called to report gram + rods in BC drawn 07-05-22 @ [address] Ramey notified. He said to call the pt and make sure he picked up the abx TCN 500 mg po q6hr. Called the daughter: she said he took 2 pills and his MD told him to stop r/t his WBC not being elevated. Informed daughter to restart the abx and see his pcp or return to ER if not better. She understood.
== END 2022-07-05 22:30 | disposition home or self-care (01) ==
LOC: ER 16:16
DX: L03.116 Cellulitis of left lower limb (principal); I10 Essential (primary) hypertension; E78.00 Pure hypercholesterolemia, unspecified; E11.9 Type 2 diabetes mellitus without complications; E03.9 Hypothyroidism, unspecified; G89.29 Other chronic pain; F12.90 Cannabis use, unspecified, uncomplicated; F15.20 Other stimulant dependence, uncomplicated; Z88.1 Allergy status to other antibiotic agents; Z59.00 Homelessness unspecified; Z56.0 Unemployment, unspecified
CPT/HCPCS: 36415; 80053; 83605; 84145; 85025; 87040; 99285

== ENCOUNTER 2023-01-10 09:16 | Emergency (ER) | payer MEDICARE, MEDICAID ==
[~2023-01-10] VITALS: Ht 182.9 cm; Wt 90.9 kg
[~2023-01-10 09:16] MED LIST changes: +ASPI81TA53 PO; +ATOR10TA PO; -ATOR40TA72 PO; -DOXY-411 PO; +HYDR-3972 PO; +LINE600T14 PO; -LISI10TA27 PO; +LOP12.5T PO; -METF-436 PO; -PANT40TA54 PO; -VANC125C11 PO
[2023-01-10 09:30] VITALS: BP 146/64; PULSE 72; TEMP 98.7; O2SAT 96
[2023-01-10] MEDS ORDERED: ketorolac trometh. 30mg/ml inj. IM ONE (11:20)
[2023-01-10 11:31] VITALS: RESP 18
== END 2023-01-10 11:49 | disposition home or self-care (01) ==
LOC: ER 09:16
DX: M79.671 Pain in right foot (principal); E78.00 Pure hypercholesterolemia, unspecified; I10 Essential (primary) hypertension; E03.9 Hypothyroidism, unspecified; E11.9 Type 2 diabetes mellitus without complications; J44.9 Chronic obstructive pulmonary disease, unspecified; F17.200 Nicotine dependence, unspecified, uncomplicated; F15.10 Other stimulant abuse, uncomplicated; Z59.00 Homelessness unspecified; Z56.0 Unemployment, unspecified; Z88.0 Allergy status to penicillin; Z79.899 Other long term (current) drug therapy; Z79.82 Long term (current) use of aspirin; Z88.8 Allergy status to other drugs, medicaments and biological substances
CPT/HCPCS: 96372; 99283; J1885

== ENCOUNTER 2023-07-25 14:40 | Emergency (ER) | payer MEDICARE, MEDICAID ==
[~2023-07-25] VITALS: Ht 172.7 cm; Wt 86.4 kg
[~2023-07-25 14:40] MED LIST changes: +ALBU8HFA PO; +AMOX-117 PO; +BLOO1EAC70 MC; +LANC1KIT; +[UNRECOGNIZED DRUG - CODE]
[2023-07-25 15:11] VITALS: TEMP 97.8
[2023-07-25] MEDS: HYDROcodone/acetaminophen 10/325mg tab PO ONE (17:07)
[2023-07-25 17:09] VITALS: BP 142/91; PULSE 78; RESP 18; O2SAT 93
== END 2023-07-25 18:04 | disposition home or self-care (01) ==
LOC: ER 14:41
DX: M79.671 Pain in right foot (principal); M79.672 Pain in left foot; Z59.00 Homelessness unspecified; E78.00 Pure hypercholesterolemia, unspecified; I11.0 Hypertensive heart disease with heart failure; E11.9 Type 2 diabetes mellitus without complications; E03.9 Hypothyroidism, unspecified; F12.10 Cannabis abuse, uncomplicated; F15.10 Other stimulant abuse, uncomplicated; Z56.0 Unemployment, unspecified; Z88.1 Allergy status to other antibiotic agents; Z79.899 Other long term (current) drug therapy
CPT/HCPCS: 99284

== ENCOUNTER 2023-08-14 10:28 | Emergency (ER) | payer MEDICARE, MEDICAID ==
[~2023-08-14] VITALS: Ht 175.3 cm; Wt 90.9 kg
[2023-08-14] MEDS ORDERED: CLOP75TA34 PO ×2 (11:16)
[2023-08-14] MEDS ORDERED: LISI30TA4 PO ×2 (11:16)
[2023-08-14] MEDS ORDERED: QUET150T16 PO (11:16)
[2023-08-14 11:36] VITALS: BP 198/103; PULSE 58; RESP 16; TEMP 98; O2SAT 98
== END 2023-08-14 11:40 | disposition home or self-care (01) ==
LOC: ER 10:28
DX: F15.10 Other stimulant abuse, uncomplicated (principal); F15.151 Other stimulant abuse with stimulant-induced psychotic disorder with hallucinations; I63.9 Cerebral infarction, unspecified; I10 Essential (primary) hypertension; E11.42 Type 2 diabetes mellitus with diabetic polyneuropathy; E78.00 Pure hypercholesterolemia, unspecified; E03.9 Hypothyroidism, unspecified; Z59.00 Homelessness unspecified
CPT/HCPCS: 99283

== ENCOUNTER 2023-08-28 19:19 | Emergency (ER) | payer MEDICARE, MEDICAID ==
[~2023-08-28] VITALS: Ht 177.8 cm; Wt 91.0 kg
[~2023-08-28 19:19] MED LIST changes: +CLOP75TA34 PO; +LISI30TA4 PO; +QUET150T16 PO
[2023-08-28 19:23] VITALS: BP 132/68; PULSE 68; RESP 16; TEMP 98.6; O2SAT 92
== END 2023-08-28 21:26 | disposition home or self-care (01) ==
LOC: ER 19:21
DX: M79.671 Pain in right foot (principal); M79.672 Pain in left foot; E78.00 Pure hypercholesterolemia, unspecified; I10 Essential (primary) hypertension; J44.9 Chronic obstructive pulmonary disease, unspecified; E11.9 Type 2 diabetes mellitus without complications; E03.9 Hypothyroidism, unspecified; F12.90 Cannabis use, unspecified, uncomplicated; F15.90 Other stimulant use, unspecified, uncomplicated; Z88.1 Allergy status to other antibiotic agents; Z79.2 Long term (current) use of antibiotics; Z79.899 Other long term (current) drug therapy
CPT/HCPCS: 99281

== ENCOUNTER 2023-11-06 23:27 | Emergency (ER) | payer MEDICARE, MEDICAID ==
[~2023-11-06] VITALS: Ht 177.8 cm; Wt 90.9 kg
[2023-11-07 00:48] VITALS: BP 122/80; PULSE 70; RESP 14; TEMP 98.9; O2SAT 99
== END 2023-11-07 05:10 | disposition left against medical advice (07) ==
LOC: ER 23:27
DX: M79.604 Pain in right leg (principal); Z53.21 Procedure and treatment not carried out due to patient leaving prior to being seen by health care provider